=== PATIENT | female | born 1955 | race Caucasian/White ===

== ENCOUNTER 2017-04-16 14:05 | Outpatient (CLI) | payer BC | END 2017-04-16 14:06 | disposition home or self-care (01) | LOC: BICMAMMO 14:05 | PROVIDERS: ATTEND Internal Medicine | DX: Z13.820 Encounter for screening for osteoporosis (principal); N95.9 Unspecified menopausal and perimenopausal disorder | CPT/HCPCS: 77080 ==

== ENCOUNTER 2017-05-28 16:29 | Outpatient (CLI) | payer BC | END 2017-05-28 16:30 | disposition home or self-care (01) | LOC: BICRAD 16:29 | DX: M05.79 Rheumatoid arthritis with rheumatoid factor of multiple sites without organ or systems involvement (principal) ==

== ENCOUNTER 2017-09-17 14:44 | Outpatient (CLI) | payer MEDICARE, BC | END 2017-09-17 14:45 | disposition home or self-care (01) | LOC: BICMRI 14:44 | PROVIDERS: ATTEND Internal Medicine | DX: M48.02 Spinal stenosis, cervical region (principal); M47.892 Other spondylosis, cervical region; M50.30 Other cervical disc degeneration, unspecified cervical region; M50.221 Other cervical disc displacement at C4-C5 level; M50.222 Other cervical disc displacement at C5-C6 level; M50.223 Other cervical disc displacement at C6-C7 level | CPT/HCPCS: 72141 ==

== ENCOUNTER 2017-11-16 11:04 | Outpatient (CLI) | payer MEDICARE, BC | END 2017-11-16 11:05 | disposition home or self-care (01) | LOC: BICMAMMO 11:04 | PROVIDERS: ATTEND Internal Medicine | DX: Z12.31 Encounter for screening mammogram for malignant neoplasm of breast (principal); Z80.3 Family history of malignant neoplasm of breast | CPT/HCPCS: 77063; 77067 ==

== ENCOUNTER → 2018-01-10 | Day surgery (SDC) | payer MEDICARE, BC ==
[2018-01-07 10:30] VITALS: BMI 38.0
[~2018-01-10] MED LIST: PROPOFOL 200 MG/20 ML VIAL ONE; PROPOFOL 40 ML ONE
[2018-01-10 11:24] LABS: #Basophils 0.1 thou/uL (0.0-0.2); #Eosinphils 0.1 thou/uL (0.0-0.7); #Lymphocytes 3.2 thou/uL (1.20-3.40); #Monocytes 0.8 thou/uL (0.11-0.59); #Neutrophils 2.4 thou/uL (1.40-6.50); %Lymphocytes 48.3 % (21.0-51.0); %Neutrophils 36.8 % (42.0-75.0); Hemoglobin 14.5 g/dL (12.0-16.0); Mean Corpuscular HGB CONC 32.8 g/dL (32.0-36.0); Mean Corpuscular Hemoglobin 31.9 pg (27.0-31.0); Mean Corpuscular Volume 97.2 fL (78.0-98.0); Mean Platelet Volume 8.3 fL (7.4-10.4); Platelet Count 245 thou/uL (130-400); RBC Distribution Width 13.3 % (11.5-14.5); Red Blood Cell (RBC) Count 4.54 mill/uL (4.20-5.40); White Blood Cell (WBC) Count 6.5 thou/uL (4.8-10.8)
[2018-01-10 11:26] LABS: INR-International Normal Ratio 1.4; Prothrombin Time 17.5 SEC (12.0-14.7)
[2018-01-10 11:27] LABS: PTT 57.1 SEC (22.9-36.1)
[2018-01-10 11:43] LABS: Anion Gap 15 mmol/L (10-20); BUN (Urea Nitrogen) 18 mg/dL (9.8-20.1); Calc. Creatinine Clearance 127 mL/min (70-130); Calcium 9.8 mg/dL (7.8-10.44); Carbon Dioxide 23 mmol/L (22-29); Chloride 102 mmol/L (98-107); Estimated GFR-MDRD 85; Glucose 115 mg/dL (70-105); Sodium 136 mmol/L (136-145)
--- NOTE | 2018-01-14 22:27 | ECHO ---
DATE OF SERVICE: 01/10/18 REASON FOR PROCEDURE: The patient is a 62-year-old female with a prior history of atrial arrhythmias, status post pulmonary venous isolation procedure and also left appendage isolation. She is here to evaluate her left atri um and left atrial appendage function in preparation for a consideration for coming off blood thinner s. PROCEDURE: The patient received propofol by Anesthesia specialist. After adequate level of sedation achieved, t he standard transesophageal echocardiogram probe was passed into the esophagus did not have difficult y. Patient tolerated the procedure well, no complications noted. RESULTS: The left atrium is moderately enlarged about 4.3 cm in horizontal diameter. Left atrial appendage is well visualized and contains no clots. Left atrial appendage velocities ar e markedly reduced about 10-15 cm per second. Four out of four pulmonary are seen without stenosis. In fact fifth rudimentary right m iddle pulmonary vein was also visualized. Interatrial septum is free of defect. The mitral valve is without significant regurgitation. Aortic valve has three leaflets without regurgitation or stenosis. Tricuspid valve with minimal regurgitation. The left ventricular and right ventricular systolic function is preserved. The visualized portions of the ascending and descending aorta without aneurysm, dissection or atherom a. Pericardial space without effusion. CONCLUSION: 1. No intracardiac clots. 2. Normal left ventricular systolic function. 3. Mild to moderate left atrial enlargement. 4. Left atrial appendage velocity is markedly reduced with a visual inspection revealing severe hypo kinesis left atrial appendage. PLAN: At this point, I would continue anticoagulation. If that is not tolerated, consider left atrial nikki endage closure procedure.
== END ==
LOC: CCL 10:49
PROVIDERS: ATTEND Internal Medicine Cardiovascular Disease
PROC: B24BZZ4 Ultrasonography of Heart with Aorta, Transesophageal (ICD-10-PCS; principal; 2018-01-10)
DX: I48.91 Unspecified atrial fibrillation (principal); I07.1 Rheumatic tricuspid insufficiency; Z88.0 Allergy status to penicillin; Z88.2 Allergy status to sulfonamides; Z98.890 Other specified postprocedural states; Z79.01 Long term (current) use of anticoagulants; Z79.4 Long term (current) use of insulin; Z79.82 Long term (current) use of aspirin; Z79.899 Other long term (current) drug therapy
CPT/HCPCS: 36415; 80048; 85025; 85610; 85730; 93005; 93010; 93312; J2704

== ENCOUNTER 2018-02-22 12:23 | Outpatient (CLI) | payer MEDICARE, BC ==
--- NOTE | 2018-02-22 13:54 | ULT ---
THYROID ULTRASOUND: Comparison: 01-11-15 History: Thyroid nodule/cyst. Technique: Multiplanar grayscale and color doppler images were obtained in a thyroid ultrasound. FINDINGS: Thyroid is homogeneous in appearance without focal nodules or cysts. No definite mass or nodule is se en in the right lobe of the thyroid where the previously seen largest lesion was present. The thyroid lobes measures 4.5 and 4.0 cm in length on the right and left, respectively. IMPRESSION: No significant thyroid abnormality. POS: CET
== END 2018-02-22 12:24 | disposition home or self-care (01) ==
LOC: BICULT 12:23
PROVIDERS: ATTEND Internal Medicine
DX: E04.1 Nontoxic single thyroid nodule (principal)
CPT/HCPCS: 76536

== ENCOUNTER 2018-06-23 14:10 | Outpatient (CLI) | payer MEDICARE, BC ==
[2018-06-23 14:39] LABS: Hemoglobin 13.9 g/dL (12.0-16.0); Mean Corpuscular HGB CONC 32.4 g/dL (32.0-36.0); Mean Corpuscular Hemoglobin 32.6 pg (27.0-31.0); Mean Platelet Volume 7.8 fL (7.4-10.4); Platelet Count 271 thou/uL (130-400); RBC Distribution Width 13.1 % (11.5-14.5); Red Blood Cell (RBC) Count 4.25 mill/uL (4.20-5.40); White Blood Cell (WBC) Count 8.2 thou/uL (4.8-10.8)
[2018-06-23 14:45] LABS: INR-International Normal Ratio 1.2; PTT 40.5 SEC (22.9-36.1); Prothrombin Time 15.7 SEC (12.0-14.7)
[2018-06-23 14:58] LABS: Anion Gap 12 mmol/L (10-20); BUN (Urea Nitrogen) 16 mg/dL (9.8-20.1); Calc. Creatinine Clearance 0 mL/min (70-130); Calcium 10.1 mg/dL (7.8-10.44); Carbon Dioxide 28 mmol/L (23-31); Chloride 100 mmol/L (98-107); Estimated GFR-MDRD 80; Glucose 118 mg/dL (80-115); Potassium 4.2 mmol/L (3.5-5.1); Sodium 136 mmol/L (136-145)
--- NOTE | 2018-06-23 21:31 | EKG ---
Test Reason : Blood Pressure : / mmHG Vent. Rate : 079 BPM Atrial Rate : 079 BPM P-R Int : 122 ms QRS Dur : 092 ms QT Int : 414 ms P-R-T Axes : 069 076 029 degrees QTc Int : 474 ms Normal sinus rhythm Normal ECG When compared with ECG of 10-JAN-2018 11:32, No significant change was found Confirmed by MENA FAITH, SRe ([id number]) on 06/23/2018 9:31:21 PM Referred By: [facility] Confirmed By:DR. Annette SAN MD
== END 2018-06-23 14:11 | disposition home or self-care (01) ==
LOC: LABBT 14:10
PROVIDERS: ATTEND Internal Medicine Cardiovascular Disease
DX: Z01.818 Encounter for other preprocedural examination (principal); I48.1 Persistent atrial fibrillation
CPT/HCPCS: 80048; 85027; 85610; 85730; 93005; 93010

== ENCOUNTER 2018-06-27 08:40 | Day surgery (SDC) | payer MEDICARE, BC ==
[2018-06-23 14:34] VITALS: BMI 34.7
[2018-06-27] MEDS ORDERED: PROPOFOL 20 ML ONE (10:19)
--- NOTE | 2018-06-27 13:42 | ECHO ---
CARDIOLOGY PROCEDURE NOTE: Date: 06/27/18 REFERRING PHYSICIAN: Dr. Bar Rosas/Dr. Karina Platt. PROCEDURE: 6 weeks post Watchman device placement FABIAN. PROCEDURE DETAILS: The patient received propofol from the anesthesia specialist. After an adequate level of sedation was achieved, a standard transesophageal echocardiogram probe was passed into the esophagus without diff iculty. The patient tolerated the procedure well. No complications noted. RESULTS: Left atrium was moderately to severely enlarged, horizontal diameter was 4.3 cm. Four of four pulmona ry veins were seen, trifurcation of right-sided pulmonary veins noted. In the left atrial appendage, a well-placed Watchman device is seen. No definite peridevice flow dete cted. Left ventricular systolic function is preserved. Mitral valve has mild to moderate regurgitation. Tri cuspid valve not regurgitant. Aortic valve free of regurgitation or stenosis. Pericardial space witho ut effusion. Intraatrial septum is only trivial residual defect at the site of the transseptal punctu re. No ventricular septal defect is identified. Visualized portions of the ascending and descending a reji are without aneurysm, dissection, or mobile atheroma. Some adherent atheroma noted in the descen ding aorta. CONCLUSION: 1. Adequately placed Watchman device without obvious leak detected. 2. Moderate to severely enlarged left atrium. 3. Normal left ventricular systolic function. 4. Mild to moderate mitral regurgitation. PLAN: Will transition patient from oral anticoagulants to aspirin and Plavix regimen.
[2018-06-27] MEDS ORDERED: PROPOFOL 200 MG/20 ML VIAL ONE (15:11)
== END 2018-06-27 11:40 | disposition home or self-care (01) ==
LOC: CCL 08:40
PROVIDERS: ATTEND Internal Medicine Cardiovascular Disease
PROC: B246ZZ4 Ultrasonography of Right and Left Heart, Transesophageal (ICD-10-PCS; principal; 2018-06-27)
DX: I48.1 Persistent atrial fibrillation (principal); I34.0 Nonrheumatic mitral (valve) insufficiency; I10 Essential (primary) hypertension; M06.9 Rheumatoid arthritis, unspecified; E78.5 Hyperlipidemia, unspecified; E03.9 Hypothyroidism, unspecified; D69.3 Immune thrombocytopenic purpura; Z88.0 Allergy status to penicillin; Z88.2 Allergy status to sulfonamides; Z79.84 Long term (current) use of oral hypoglycemic drugs; Z79.01 Long term (current) use of anticoagulants; Z79.82 Long term (current) use of aspirin; Z79.899 Other long term (current) drug therapy
CPT/HCPCS: 93312; J2704

== ENCOUNTER 2018-11-22 08:22 | Outpatient (CLI) | payer MEDICARE, BC ==
--- NOTE | 2018-11-22 09:52 | MMO ---
Bilateral MAMMO Bilat Screen [facility]. CLINICAL HISTORY: Patient is 63 years old and is seen for screening. The patient has the following family history of breast cancer: mother, at age 42, AND LUNG. The patient has no personal history of cancer. The patient has a history of left Excisional Biopsy in 2002 - benign findings. VIEWS: The views performed were: bilateral craniocaudal with tomosynthesis and bilateral mediolateral oblique with tomosynthesis. FILMS COMPARED: The present examination has been compared to prior imaging studies performed at [facility] on 11/13/2015, 07/03/2016, 11/13/2016 and 11/16/2017. MAMMOGRAM FINDINGS: There are scattered fibroglandular densities. There are no suspicious masses, suspicious calcifications, or new areas of architectural distortion. IMPRESSION: THERE IS NO MAMMOGRAPHIC EVIDENCE OF MALIGNANCY. A ROUTINE FOLLOW-UP MAMMOGRAM IN 1 YEAR IS RECOMMENDED. THE RESULTS OF THIS EXAM WERE SENT TO THE PATIENT. ACR BI-RADS Category 1 - Negative MAMMOGRAPHY NOTE: 1. A negative mammogram report should not delay a biopsy if a dominant of clinically suspicious mass is present. 2. Approximately 10% to 15% of breast cancers are not detected by mammography. 3. Adenosis and dense breasts may obscure an underlying neoplasm. Reported by: OMRIS CAMARILLO MD Electonically Signed: [id number]
== END 2018-11-22 08:23 | disposition home or self-care (01) ==
LOC: BICMAMMO 08:22
PROVIDERS: ATTEND Internal Medicine
DX: Z12.31 Encounter for screening mammogram for malignant neoplasm of breast (principal); Z80.3 Family history of malignant neoplasm of breast
CPT/HCPCS: 77063; 77067

== ENCOUNTER 2019-05-05 13:16 | Outpatient (CLI) | payer MEDICARE, BC ==
--- NOTE | 2019-05-05 13:41 | BD ---
DEXA BONE DENSITY SCAN: DATE: 05/05/2019. HISTORY: Postmenopausal female undergoing screening for osteoporosis. FINDINGS: Lumbar Spine: BMD (g/cm2) L1 0.855 T-Score: -1.2 L2 0.811 T-Score: -2.0 L3 0.855 T-Score: -2.1 L4 0.882 T-Score: -1.6 L1-L4 0.851 T-Score: -1.8 Femoral Neck: 0.651 T-Score: -1.8 Total Femur: 0.769 T-Score: -1.4 FRAX-WHO fracture risk assessment tool reports a 10-year fracture risk in an untreated patient at 18% for major osteoporotic fracture and 2.1% for a hip fracture. IMPRESSION: Osteopenia, correlating with a moderately increased risk for fracture. Transcribed Date/Time: 05/05/2019 1:41 PM
== END 2019-05-05 13:17 | disposition home or self-care (01) ==
LOC: BICMAMMO 13:16
PROVIDERS: ATTEND Internal Medicine
DX: Z13.820 Encounter for screening for osteoporosis (principal); N95.9 Unspecified menopausal and perimenopausal disorder; M85.89 Other specified disorders of bone density and structure, multiple sites
CPT/HCPCS: 77080

== ENCOUNTER 2020-11-05 09:48 | Outpatient (CLI) | payer MEDICARE, BC | END 2020-11-05 09:49 | disposition home or self-care (01) | LOC: BICRAD 09:48 | PROVIDERS: ATTEND Internal Medicine Critical Care Medicine | DX: R06.00 Dyspnea, unspecified (principal) | CPT/HCPCS: 71046 ==

== ENCOUNTER 2020-11-28 08:40 | Outpatient (CLI) | payer MEDICARE, BC | END 2020-11-28 08:41 | disposition home or self-care (01) | LOC: CT 08:40 | PROVIDERS: ATTEND Internal Medicine Cardiovascular Disease | DX: I27.20 Pulmonary hypertension, unspecified (principal); I70.0 Atherosclerosis of aorta; R59.0 Localized enlarged lymph nodes; Z95.818 Presence of other cardiac implants and grafts | CPT/HCPCS: 71275; 82565 ==

== ENCOUNTER 2020-12-02 13:18 | Outpatient (CLI) | payer MEDICARE, BC | END 2020-12-02 13:19 | disposition home or self-care (01) | LOC: BICMAMMO 13:18 | PROVIDERS: ATTEND Internal Medicine | DX: Z12.31 Encounter for screening mammogram for malignant neoplasm of breast (principal); Z80.3 Family history of malignant neoplasm of breast | CPT/HCPCS: 77063; 77067 ==

== ENCOUNTER 2021-08-28 08:33 | Outpatient (CLI) | payer MEDICARE, BC | END 2021-08-28 08:34 | disposition home or self-care (01) | LOC: BICULT 08:33 | PROVIDERS: ATTEND Internal Medicine | DX: R74.8 Abnormal levels of other serum enzymes (principal); Z80.0 Family history of malignant neoplasm of digestive organs | CPT/HCPCS: 76700 ==

== ENCOUNTER 2021-10-17 13:25 | Outpatient (CLI) | payer MEDICARE, BC ==
[2021-10-17 14:52] LABS: Hemoglobin 14.2 g/dL (12.0-15.5); Mean Corpuscular HGB CONC 33.9 g/dL (32.0-36.0); Mean Corpuscular Hemoglobin 32.8 pg (27.0-33.0); Mean Corpuscular Volume 96.8 fl (81.6-98.3); Mean Platelet Volume 11.6 fl (7.4-10.4); Platelet Count 307 10x3/uL (150-450); RBC Distribution Width 14.1 % (11.5-14.5); Red Blood Cell (RBC) Count 4.33 10x6/uL (3.90-5.03); White Blood Cell (WBC) Count 8.5 10x3/uL (3.5-10.5)
[2021-10-17 15:25] LABS: Anion Gap 16 mmol/L (10-20); BUN (Urea Nitrogen) 14 mg/dL (9.8-20.1); Calc. Creatinine Clearance 0 mL/min (70-130); Calcium 9.8 mg/dL (7.8-10.44); Carbon Dioxide 25 mmol/L (23-31); Chloride 101 mmol/L (98-107); Estimated GFR 78; Glucose 148 mg/dL (80-115); Potassium 4.7 mmol/L (3.5-5.1); Sodium 137 mmol/L (136-145)
[2021-10-17 15:31] LABS: INR-International Normal Ratio 0.9; PTT 29.6 sec (22.0-33.0); Prothrombin Time 9.8 sec (9.5-12.1)
== END 2021-10-17 13:26 | disposition home or self-care (01) ==
LOC: LABBT 13:25
PROVIDERS: ATTEND Internal Medicine Cardiovascular Disease
DX: Z01.812 Encounter for preprocedural laboratory examination (principal); I48.19 Other persistent atrial fibrillation; Z79.01 Long term (current) use of anticoagulants; Z20.822 Contact with and (suspected) exposure to COVID-19
CPT/HCPCS: 80048; 85027; 85610; 85730; 87811

== ENCOUNTER → 2021-10-22 | Day surgery (SDC) | payer MEDICARE, BC ==
[2021-10-20 14:15] VITALS: BMI 35.6
[~2021-10-22] MED LIST changes: +Lidocaine 1% w/Epinephrine 1:100K 20 ML VIAL ONE; -PROPOFOL 200 MG/20 ML VIAL ONE; -PROPOFOL 40 ML ONE
== END | disposition home or self-care (01) ==
LOC: SDC 09:49
PROVIDERS: ATTEND Internal Medicine Cardiovascular Disease
PROC: 0JPT32Z Removal of Monitoring Device from Trunk Subcutaneous Tissue and Fascia, Percutaneous Approach (ICD-10-PCS; principal; 2021-10-22)
DX: Z45.09 Encounter for adjustment and management of other cardiac device (principal); I48.19 Other persistent atrial fibrillation; D69.3 Immune thrombocytopenic purpura; I11.0 Hypertensive heart disease with heart failure; I50.9 Heart failure, unspecified; E11.9 Type 2 diabetes mellitus without complications; E78.00 Pure hypercholesterolemia, unspecified; M06.9 Rheumatoid arthritis, unspecified; E03.9 Hypothyroidism, unspecified; G47.30 Sleep apnea, unspecified; E66.9 Obesity, unspecified; Z68.35 Body mass index [BMI] 35.0-35.9, adult; Z79.82 Long term (current) use of aspirin; Z79.84 Long term (current) use of oral hypoglycemic drugs; Z79.899 Other long term (current) drug therapy; Z95.818 Presence of other cardiac implants and grafts; Z88.2 Allergy status to sulfonamides
CPT/HCPCS: 33286

== ENCOUNTER 2021-12-04 12:45 | Outpatient (CLI) | payer MEDICARE, BC | END 2021-12-04 12:46 | disposition home or self-care (01) | LOC: BICMAMMO 12:45 | PROVIDERS: ATTEND Internal Medicine | DX: Z12.31 Encounter for screening mammogram for malignant neoplasm of breast (principal); Z80.3 Family history of malignant neoplasm of breast; Z91.89 Other specified personal risk factors, not elsewhere classified | CPT/HCPCS: 77063; 77067 ==

== ENCOUNTER 2022-06-16 16:37 | Outpatient (CLI) | payer MEDICARE, BC | END 2022-06-16 16:38 | disposition home or self-care (01) | LOC: RAD 16:37 | PROVIDERS: ATTEND Internal Medicine Cardiovascular Disease | DX: I50.32 Chronic diastolic (congestive) heart failure (principal) | CPT/HCPCS: 71046 ==

== ENCOUNTER 2022-06-30 12:37 | Outpatient (CLI) | payer MEDICARE, BC | END 2022-06-30 12:38 | disposition home or self-care (01) | LOC: ULT 12:37 | PROVIDERS: ATTEND Internal Medicine Cardiovascular Disease | DX: I27.20 Pulmonary hypertension, unspecified (principal) | CPT/HCPCS: 93306 ==

== ENCOUNTER 2022-07-21 13:22 | Outpatient (CLI) | payer MEDICARE, BC | END 2022-07-21 13:23 | disposition home or self-care (01) | LOC: CT 13:22 | PROVIDERS: ATTEND Internal Medicine Cardiovascular Disease | DX: R06.02 Shortness of breath (principal) | CPT/HCPCS: 71275; 82565 ==

== ENCOUNTER 2022-08-06 08:45 | Outpatient (CLI) | payer MEDICARE, BC | END 2022-08-06 08:46 | disposition home or self-care (01) | LOC: RAD 08:45 | PROVIDERS: ATTEND Internal Medicine Critical Care Medicine | DX: R06.00 Dyspnea, unspecified (principal) | CPT/HCPCS: 71046 ==

== ENCOUNTER 2023-02-18 13:48 | Outpatient (CLI) | payer MEDICARE, BC | END 2023-02-18 13:49 | disposition home or self-care (01) | LOC: BICMAMMO 13:48 | PROVIDERS: ATTEND Internal Medicine | DX: Z12.31 Encounter for screening mammogram for malignant neoplasm of breast (principal); Z91.89 Other specified personal risk factors, not elsewhere classified; Z80.3 Family history of malignant neoplasm of breast | CPT/HCPCS: 77063; 77067 ==

== ENCOUNTER 2024-02-23 13:30 | Outpatient (CLI) | payer MEDICARE, BC | END 2024-02-23 13:31 | disposition home or self-care (01) | LOC: BICMAMMO 13:30 | PROVIDERS: ATTEND Internal Medicine | DX: Z12.31 Encounter for screening mammogram for malignant neoplasm of breast (principal); Z80.3 Family history of malignant neoplasm of breast; Z91.89 Other specified personal risk factors, not elsewhere classified | CPT/HCPCS: 77063; 77067 ==

== ENCOUNTER 2025-03-01 12:33 | Outpatient (CLI) | payer MEDICARE, BC | END 2025-03-01 12:34 | disposition home or self-care (01) | LOC: BICMAMMO 12:33 | PROVIDERS: ATTEND Internal Medicine | DX: Z12.31 Encounter for screening mammogram for malignant neoplasm of breast (principal); Z80.3 Family history of malignant neoplasm of breast; Z91.89 Other specified personal risk factors, not elsewhere classified | CPT/HCPCS: 77063; 77067 ==